=== PATIENT | male | born 1945 | race Caucasian/White ===

== ENCOUNTER 2016-09-17 04:03 | Inpatient (IN) | payer BC, OTHER ==
[2016-09-17] MEDS ORDERED: NS 1,000 ML IV ONE (04:48)
[2016-09-17 05:07] LABS: % IMMATURE GRANULYOCYTES 0.4 % (0.0-1.1); ABSOLUTE IMMATURE GRANULOCYTES 0.03 10^3/uL (0.00-0.10); ADD DIFF? NO; ADD MORPH? NO; ADD SCAN? NO; ATYPICAL LYMPHOCYTE FLAG 10 (0-99); FRAGMENT RBC FLAG 0 (0-99); HEMATOCRIT 30.2 % (40.0-51.0); HEMOGLOBIN 10.2 g/dL (13.7-17.5); LEFT SHIFT FLG 10 (0-99); LIPEMIA HEMOLYSIS FLAG 90 (0-99); MEAN CELL HEMOGLOBIN 33.1 pg (27.9-34.1); MEAN CELL HEMOGLOBIN CONCENTR. 33.8 g/dL (32.4-36.7); MEAN CELL VOLUME 98.1 fL (81.5-99.8); MEAN PLATELET VOLUME 9.1 fL (8.7-11.7); PLATELET CLUMPS FLAG 0 (0-99); PLATELET COUNT 297 10^3/uL (150-400); RED BLOOD CELL COUNT 3.08 10^6/uL (4.40-6.38); RED CELL DISTRIBUTION WIDTH 13.4 % (11.5-15.2)
[2016-09-17 05:16] LABS: ALANINE AMINOTRANSFERASE 36 IU/L (21-72); ALBUMIN 3.6 g/dL (3.5-5.0); ALKALINE PHOSPHATASE 81 IU/L (38-126); ANION GAP 9 mEq/L (8-16); ASPARTATE AMINOTRANSFERASE 36 IU/L (17-59); BILIRUBIN,TOTAL 0.7 mg/dL (0.1-1.4); BILIRUBIN-CONJUGATED 0.7 mg/dL (0.0-0.5); CALCIUM 8.7 mg/dL (8.5-10.4); CARBON DIOXIDE 22 mEq/l (22-31); CHLORIDE 113 mEq/L (97-110); CREATININE 1.1 mg/dL (0.7-1.3); ETHANOL SERUM < 10 mg/dL (0-10); GLOMERULAR FILTRATION RATE > 60; GLUCOSE 147 mg/dL (70-100); POTASSIUM 4.1 mEq/L (3.5-5.2); SODIUM 144 mEq/L (134-144); TOTAL PROTEIN 6.3 g/dL (6.3-8.2)
--- NOTE | 2016-09-17 05:25 | EDPHY ---
H & P Stated Complaint: AMS, found by spouse on floor next to bed, delusional, Hx of encephalopathy Time Seen by Provider: 09/17/16 04:28 HPI/ROS: HPI The patient presents with weakness and altered mental status, brought in by his and son. The patient has a recent history of encephalitis with aspiration pneumonia and multiple sclerosis, discharged from the hospital on July 26 to a rehab facility. He has been at home for the last 3 weeks. During the last 1 week he has gotten progressively more weak than usual. When he left the rehab facility, he could use a wheelchair and make transfers on his own. However, now over the last 3 days he has been bedbound and unable to make transfers with his wheelchair. His came home from work tonight find him on the ground. He said that there were several people in the house that were intruding and he said he went to the 3rd floor, however there house is not have a 3rd floor. His says that this would be impossible. His also says that he is having difficulty feeding himself and she had to feed him a sandwich before they came in today. He has had multiple falls out of his bed. He continues to take tramadol, however he is taking a lower dose than usual he says, 2 pills 3 times a day REVIEW OF SYSTEMS Constitutional: No fever, no chills. Eyes: No discharge. ENT: No sore throat. Cardiovascular: No chest pain, no palpitations. Respiratory: No cough, no shortness of breath. Gastrointestinal: No abdominal pain, no vomiting. Genitourinary: No hematuria. Musculoskeletal: Lower back pain is present Skin: No rashes. Neurological: No headache. PMHx: Multiple sclerosis, history of acute encephalopathy with aspiration pneumonia Soc Hx: Lives at home with his PHYSICAL General Appearance: Alert, no distress Eyes: Pupils equal and round no pallor or injection ENT, Mouth: Mucous membranes moist Respiratory: There are no retractions, lungs are clear to auscultation Cardiovascular: Regular rate and rhythm Gastrointestinal: Abdomen is soft and non-tender, no masses, bowel sounds normal Neurological: A&O, moves all extremities Skin: Warm and dry, no rashes Musculoskeletal: Neck is supple non tender Extremities: symmetrical, full range of motion Psychiatric: Patient is oriented X 3, there is no agitation, active hallucinations Source: Patient, Family - Personal History Tetanus Vaccine Date: W/IN LAST FEW YEARS - Medical/Surgical History Hx Asthma: No Hx Chronic Respiratory Disease: No Hx Diabetes: No Hx Cardiac Disease: Yes Hx Renal Disease: No Hx Cirrhosis: No Hx Alcoholism: No Hx HIV/AIDS: No Hx Splenectomy or Spleen Trauma: No Other PMH: MS, CHF, arthritis, umbilical hernia repair, bowel obstruction - Social History Smoking Status: Former smoker Constitutional: Initial Vital Signs Temperature (C) 36.8 C 09/17/16 04:15 Heart Rate 88 09/17/16 04:15 Respiratory Rate 16 09/17/16 04:15 Blood Pressure 147/67 H 09/17/16 04:15 O2 Sat (%) 96 09/17/16 04:15 O2 Delivery Mode Room Air Allergies/Adverse Reactions: No Known Allergies Allergy (Unverified 03/10/13 14:27) Home Medications: Medication Instructions Recorded Carvedilol [Coreg (*)] 6.25 mg PO DAILY 03/10/13 Glatiramer Acetate [Copaxone] 40 mg SQ MOWEFR 03/10/13 Lisinopril/Hctz 20/12.5MG 1 ea PO DAILY 03/10/13 [Zestoretic/Prinzide 20/12.5MG (*)] Methocarbamol [Robaxin 750 mg (*)] 1,500 mg PO QID 03/10/13 Omeprazole [Prilosec 40 mg] 40 mg PO DAILY 03/10/13 Potassium Cl [Klor-Con 20 meq (*)] 20 meq PO Q48H 03/10/13 Herbals/Supplements -Info Only 1 ea PO AD 02/19/15 traMADol [Ultram 50 mg (*)] 100 mg PO Q4H PRN 02/19/15 Amitriptyline HCl [Elavil 50 mg 50 mg PO HS 07/15/16 (*)] Gabapentin [Neurontin] 900 mg PO BID #0 tablet 07/26/16 Medical Decision Making - Diagnostics Imaging: CT scan of head shows findings of multiple sclerosis without any acute findings , discussed with Dr. Garcia. ED Course/Re-evaluation: 4:45 a.m.- Initial patient encounter. We have started an IV and will check basic labs, chest x-ray, CT scan of head. 7:00 a.m.- Labs and studies have returned relatively normal. He continues to be altered. I have discussed the case with the hospitalist Dr. Diez and we plan to admit him. Differential Diagnosis: This is a 71-year-old male with helped history of multiple sclerosis who presents from home brought in by his family with concern for hallucinations as well as progressive weakness. The weakness seems global and he has had several falls out of bed. He was admitted about 2 months ago for acute encephalopathy, similar to this and had an extensive workup which was remarkable for aspiration pneumonia. His encephalopathy was thought to be related to medication use, possibly gabapentin and tramadol. Differential diagnosis includes encephalopathy related to medication use, multiple sclerosis, underlying liver disease, infection. - Data Points Laboratory Results: Laboratory Results 09/17/16 04:55 09/17/16 04:55 Medications Given: Discontinued Medications Sodium Chloride (Ns) 1,000 mls @ 0 mls/hr IV ONCE ONE PRN Reason: Wide Open Stop: 09/17/16 04:49 Last Admin: 09/17/16 05:08 Dose: 1,000 mls Departure - Departure Disposition: [facility] Inpatient Acute Clinical Impression: Confusion, Weakness, Multiple sclerosis Condition: Fair
[2016-09-17] MEDS ORDERED: ONDANSETRON 4 MG/2 ML VIAL IVP PRN (06:35)
[2016-09-17] MEDS ORDERED: ACETAMINOPHEN 325 MG TAB PO PRN (06:35)
[2016-09-17] MEDS ORDERED: ONDANSETRON DISINTEGRATING 4 MG TAB PO PRN (06:35)
--- NOTE | 2016-09-17 06:48 | PDGENHP ---
History and Physical - Chief Complaint Altered mental status - History of Present Illness Patient is a 71-year-old male with multiple sclerosis, CHF, hypertension and GERD who presents to the ED with altered mental status and frequent falls. Patient had hospitalization at [facility] about 2 months ago for altered mental status which was ultimately deemed to be multifactorial in nature , was discharged to subacute rehab facility and had recently been discharged home about 3 weeks ago. Patient's states that for the past week she has noticed an increase in the frequency falls. Patient reports that falls have been mechanical in nature, mostly him sliding off the bed when trying to stand or reach for something. On the day of presentation today, patient is states she left for work earlier in the day and when she returned she found him on the floor near his bed. He was unable to stand and she is unsure how long he had been on the ground. Patient states he remembers falling, described as a mechanical fall due to lower extremity weakness, and he does remember hitting his head on the ground In addition to generalized weakness, patient was also answering questions inappropriately and appeared acutely confused. He was reporting seeing people in his home wearing masks who were not there. Patient' s was unable to lift him it back into his bed, so she called EMS. Patient and his deny any recent illnesses including fevers, chills, nausea, vomiting, diarrhea cough, shortness of breath or chest pain. He did have of a viral GI illness while in the subacute rehab facility, but this had resolved. During his prior admission, polypharmacy was thought to be contributing to his presentation. Attempts were made to decrease and tramadol dosing, however patient states he still continues to be this medication daily. No other medication changes since discharge were made. On arrival to the ED, patient was afebrile and hemodynamically stable. Labs were largely unremarkable, negative lactate, CBC and BMP at baseline. Chest x- ray did not reveal any evidence of pneumonia. CT head was unchanged from prior. Patient was given IV fluid hydration and admitted to the hospital service for further management. History Information - Allergies/Home Medication List Allergies/Adverse Reactions: No Known Allergies Allergy (Unverified 03/10/13 14:27) Home Medications: Carvedilol [Coreg (*)] 6.25 mg PO DAILY 03/10/13 [Last Taken 07/12/16] Glatiramer Acetate [Copaxone] 40 mg SQ MOWEFR 03/10/13 [Last Taken 07/13/16] Lisinopril/Hctz 20/12.5MG [Zestoretic/Prinzide 20/12.5MG (*)] 1 ea PO DAILY [Last Taken 07/12/16] Methocarbamol [Robaxin 750 mg (*)] 1,500 mg PO QID 03/10/13 [Last Taken 07/12/16 ] Omeprazole [Prilosec 40 mg] 40 mg PO DAILY 03/10/13 [Last Taken 07/12/16] Potassium Cl [Klor-Con 20 meq (*)] 20 meq PO Q48H 03/10/13 [Last Taken 07/10/16] Herbals/Supplements -Info Only 1 ea PO AD 02/19/15 [Last Taken Unknown] traMADol [Ultram 50 mg (*)] 100 mg PO Q4H PRN 02/19/15 [Last Taken 07/14/16] Amitriptyline HCl [Elavil 50 mg (*)] 50 mg PO HS 07/15/16 [Last Taken 07/12/16] I have personally reviewed and updated: family history, medical history, social history, surgical history - Past Medical History Additional medical history: Multiple sclerosis (diagnosed about 10 years ago, relapsing remitting type, no recent changes in medications). Chronic systolic CHF. Arthritis. Hypertension. GERD - Surgical History Additional surgical history: SBO repair. Umbilical hernia. b/l inguinal hernia - Family History Additional family history: M: ?throat cancer - Social History Smoking Status: Former smoker Alcohol Use: None Drug Use: None Additional social history: Pt lives with his , at his baseline is able to complete simple ADLs (bathroom activities, simple kitchen tasks); walks with walker. Retired, formerly worked in security. Review of Systems ROS: 10pt was reviewed & negative except for what was stated in HPI & below Physical Exam Temp Pulse Resp BP Pulse Ox 36.8 C 88 16 147/67 H 96 09/17/16 04:15 09/17/16 04:15 09/17/16 04:15 09/17/16 04:15 09/17/16 04:15 Constitutional: appears nourished, not in pain, chronically ill appearing Eyes: PERRL, anicteric sclera, EOMI Ears, Nose, Mouth, Throat: hearing normal, ears appear normal, no oral mucosal ulcers, dry mucous membranes Cardiovascular: regular rate and rhythym, no murmur, rub, or gallop, pulses symmetric bilaterally, No JVD, No edema Peripheral Pulses: 2+: dorsalis-pedis (R), dorsalis-pedis (L) Respiratory: no respiratory distress, no rales or rhonchi, clear to auscultation Gastrointestinal: normoactive bowel sounds, soft, non-tender abdomen, no palpable masses, No guarding, No rebound, No distension Genitourinary: no bladder fullness, no bladder tenderness Skin: warm, normal color, no rashes or abrasions, no fluctuance, No mottled Musculoskeletal: no muscle tenderness, no joint effusions Neurologic: AAOx3, sensation intact bilaterally, CN II-XII Intact, No weakness, No numbness Psychiatric: not anxious, not encephalopathic, thought process linear Lab Data & Imaging Review 09/17/16 04:55 09/17/16 04:55 WBC 7.94 10^3/uL (3.80-9.50) 09/17/16 04:55 RBC 3.08 10^6/uL (4.40-6.38) L 09/17/16 04:55 Hgb 10.2 g/dL (13.7-17.5) L 09/17/16 04:55 Hct 30.2 % (40.0-51.0) L 09/17/16 04:55 MCV 98.1 fL (81.5-99.8) 09/17/16 04:55 MCH 33.1 pg (27.9-34.1) 09/17/16 04:55 MCHC 33.8 g/dL (32.4-36.7) 09/17/16 04:55 RDW 13.4 % (11.5-15.2) 09/17/16 04:55 Plt Count 297 10^3/uL (150-400) 09/17/16 04:55 MPV 9.1 fL (8.7-11.7) 09/17/16 04:55 Neut % (Auto) 79.2 % (39.3-74.2) H 09/17/16 04:55 Lymph % (Auto) 12.6 % (15.0-45.0) L 09/17/16 04:55 [place] % (Auto) 7.3 % (4.5-13.0) 09/17/16 04:55 Eos % (Auto) 0.1 % (0.6-7.6) L 09/17/16 04:55 Baso % (Auto) 0.4 % (0.3-1.7) 09/17/16 04:55 Nucleat RBC Rel Count 0.0 % (0.0-0.2) 09/17/16 04:55 Absolute Neuts (auto) 6.29 10^3/uL (1.70-6.50) 09/17/16 04:55 Absolute Lymphs (auto) 1.00 10^3/uL (1.00-3.00) 09/17/16 04:55 Absolute Monos (auto) 0.58 10^3/uL (0.30-0.80) 09/17/16 04:55 Absolute Eos (auto) 0.01 10^3/uL (0.03-0.40) L 09/17/16 04:55 Absolute Basos (auto) 0.03 10^3/uL (0.02-0.10) 09/17/16 04:55 Absolute Nucleated RBC 0.00 10^3/uL (0-0.01) 09/17/16 04:55 Immature Gran % 0.4 % (0.0-1.1) 09/17/16 04:55 Immature Gran # 0.03 10^3/uL (0.00-0.10) 09/17/16 04:55 Sodium 144 mEq/L (134-144) 09/17/16 04:55 Potassium 4.1 mEq/L (3.5-5.2) 09/17/16 04:55 Chloride 113 mEq/L (97-110) H 09/17/16 04:55 Carbon Dioxide 22 mEq/l (22-31) 09/17/16 04:55 Anion Gap 9 mEq/L (8-16) 09/17/16 04:55 BUN 26 mg/dL (7-23) H 09/17/16 04:55 Creatinine 1.1 mg/dL (0.7-1.3) 09/17/16 04:55 Estimated GFR > 60 09/17/16 04:55 Glucose 147 mg/dL (70-100) H 09/17/16 04:55 Calcium 8.7 mg/dL (8.5-10.4) 09/17/16 04:55 Total Bilirubin 0.7 mg/dL (0.1-1.4) 09/17/16 04:55 Conjugated Bilirubin 0.7 mg/dL (0.0-0.5) H 09/17/16 04:55 Unconjugated Bilirubin 0.0 mg/dL (0.0-1.1) 09/17/16 04:55 AST 36 IU/L (17-59) 09/17/16 04:55 ALT 36 IU/L (21-72) 09/17/16 04:55 Alkaline Phosphatase 81 IU/L (38-126) 09/17/16 04:55 Total Protein 6.3 g/dL (6.3-8.2) 09/17/16 04:55 Albumin 3.6 g/dL (3.5-5.0) 09/17/16 04:55 Ethyl Alcohol < 10 mg/dL (0-10) 09/17/16 04:55 Visualized and Interpreted Chest x-ray results: Yes Chest X-Ray results: no infiltrate, normal Visualized and Interpreted imaging results: Yes Interpretation: CT head: Chronic MS changes, no acute findings Assessment & Plan Assessment: Patient is a 71-year-old male with a history of advanced MS, hypertension GERD and osteoarthritis who presents to the ED with an acute episode of altered mental status, etiology unclear. Plan: # acute encephalopathy Etiology of encephalopathy is again unclear, differential includes polypharmacy , acute infection (UA pending), intoxication, CVA. Exam does not appear consistent with an acute MS flare and no evidence of focal deficits. Will hold tramadol, cont gentle IVF hydration and obtain neurology consult. - check ammonia, CO2 levels, pH - gentle IVF hydration - neurology consult # falls # chronic systolic CHF Pt appears hypovolemic on exam and labs are consistent with dehydration. Will give gentle hydration and monitor to avoid over hydration. WIll also check EKG and trop to r/o a cardiac etiology of his encephalopathy. # chronic MS Pt's current presentation does not appear consistent with an MS flare. Will confirm and cont home meds. # chronic HTN BP stable, will continue home meds. # GERD Stable, cont home med # osteoarthritis Pt denies any acute pain. Will try to avoid opioid pain med in setting of acute encephalopathy # dispo: admit to inpt service for > 2 MN # gen: Cardiac diet DVT ppx: lovenox Full code
[2016-09-17] MEDS ORDERED: OXYCODONE/APAP 5/325 TAB ONE (08:31)
--- NOTE | 2016-09-17 09:03 | DX ---
PA and Lateral Chest September 17, 2016, 5:02 a.m. Indication: Altered mental status. Evaluate for pneumonia. Comparison: Portable chest dated July 17, 2016. Findings: Left basilar airspace consolidation has resolved. Diffuse mild peribronchial thickening is unchanged. No new confluent consolidation or edema. Minimal cardiomegaly unchanged. Impression: 1. No pneumonia, aspiration or interstitial edema. 2. Resolved left basilar consolidation since June 2016.
[2016-09-17] MEDS: NS 1,000 ML IV SCH (12:05)
[2016-09-17] MEDS: ENOXAPARIN 40 MG/0.4 ML SYR SC SCH (12:06)
[2016-09-17] MEDS: OXYCODONE/APAP 5/325 TAB PO PRN ×2 (12:48→17:07)
--- NOTE | 2016-09-17 15:50 | HOSPPROG ---
Hospitalist Progress Note Assessment/Plan: 71 yo M with hx of MS that is fairly advanced as well as chf and recent hospitalization for aspiration pna admitted with acute encephalopathy # acute encephalopathy: has been improving rapidly overnight without intervention other than IVF. Question if this could be medication related, such as inadvertent overdose, patient feels strongly this isn't possible, though does acknowledge that he manages his own medications and uses a system that his doesn't understand so that if he did take wrong or extra pills, he wouldn' t really know that. No clear e/o infection though UA still pending. Does not have any focal neuro deficits on exam and head CT unremarkable. Will monitor for now, check UA, consider further w/u if recurs. If not, will work on med administration safety at home # MS: relapsing and remitting, on copaxone, has difficulties with ADLs and has been falling more frequently. Is still living at home with his who is working during the day still. May need higher level of care in the near future. # chronic diastolic heart failure: no e/o exacerbation, appears euvolemic # chronic medical issues including : htn, gerd, OA--continue op meds # dispo: will monitor overnight, if no further issues may be able to dc home at that time with home health Patient new to my care. Old records reviewed and summarized as above. Further hx obtained from patients present at bedside. Objective: Vital Signs Temp Pulse Resp BP Pulse Ox 36.9 C 75 18 146/56 H 95 09/17/16 11:52 09/17/16 11:52 09/17/16 11:52 09/17/16 11:52 09/17/16 11:52 - Time Spent With Patient Time Spent with Patient: greater than 35 minutes Time Spent with Patient: Greater than 35 minutes spent on this patients care, greater than 50% of time spent counseling, educating, and coordinating care regarding the above mentioned plan. ICD10 Worksheet Patient Problems: Problems Problem Status Diagnosed Confusion Acute Multiple sclerosis Acute Weakness Acute Diarrhea Acute Nausea & vomiting Acute Vomiting Acute
--- NOTE | 2016-09-17 16:17 | CT ---
CT Head, Without Contrast History: Altered mental status. History of MS. Hallucinations. Technique: Standard noncontrast head CT protocol utilizing axial images acquired through the [facility] um. Images were reconstructed down to 1.25-mm slice thickness as well. Radiation dose technique was u tilized. Comparison: July 15, 2016. Findings: Periventricular and deep hemispheric white matter lesions are seen bilaterally with a stabl e appearance. Some of these white matter lesions are very low attenuation perpendicular to the latera l ventricles that can be seen with multiple sclerosis. No evidence for acute infarct, intracranial he morrhage, or mass. The ventricles, sulci, and cisterns are within normal limits for the patient's age . No evidence for an extraaxial fluid collection. No evidence for skull fracture. No evidence for an air-fluid level in the paranasal sinuses. Impression: Stable periventricular and deep hemispheric white matter lesions that can be seen with de myelinating disease such as multiple sclerosis as given by history. No acute intracranial abnormality is visualized. Results discussed with Dr. Kalee Albert at 0554 hours on 17 September 2016. Final interpretation concurs with initial preliminary radiologist impression.
[2016-09-17] MEDS: POTASSIUM CL 20 MEQ TAB PO SCH (16:50)
[2016-09-17] MEDS: METHOCARBAMOL 750 MG TAB PO SCH ×2 (16:50→20:32)
[2016-09-17 18:32] LABS: PCO2 VENOUS 30 mmHg (40-44); PH VENOUS BLOOD 7.43 (7.31-7.42); PO2 VENOUS 169 mmHg (35-40); TCO2 VENOUS 21 mEq/L (23-27); VEN MEASURED OXYGEN SATURATION 100 % (65-75)
[2016-09-17] MEDS: AMITRIPTYLINE HCL 50 MG TAB PO SCH (20:32)
[2016-09-17] MEDS: GABAPENTIN 300 MG CAP PO SCH (20:32)
[2016-09-17] MEDS: traMADol 50 MG TAB PO PRN (20:33)
[2016-09-17] MEDS ORDERED: GABAPENTIN 900 MG PO SCH (21:00)
[2016-09-17 22:23] LABS: COLOR YELLOW; LEUKOCYTE ESTERASE,URINE NEGATIVE (NEGATIVE); NITRITE,URINE NEGATIVE (NEGATIVE)
[2016-09-18] MEDS: OXYCODONE/APAP 5/325 TAB PO PRN ×3 (00:33→18:32)
[2016-09-18] MEDS: traMADol 50 MG TAB PO PRN ×3 (04:25→18:31)
[2016-09-18 05:52] LABS: % IMMATURE GRANULYOCYTES 0.2 % (0.0-1.1); ABSOLUTE IMMATURE GRANULOCYTES 0.01 10^3/uL (0.00-0.10); ADD DIFF? NO; ADD MORPH? NO; ADD SCAN? NO; ATYPICAL LYMPHOCYTE FLAG 0 (0-99); FRAGMENT RBC FLAG 0 (0-99); HEMATOCRIT 29.8 % (40.0-51.0); LEFT SHIFT FLG 0 (0-99); LIPEMIA HEMOLYSIS FLAG 80 (0-99); MEAN CELL HEMOGLOBIN 33.8 pg (27.9-34.1); MEAN CELL HEMOGLOBIN CONCENTR. 33.6 g/dL (32.4-36.7); MEAN CELL VOLUME 100.7 fL (81.5-99.8); MEAN PLATELET VOLUME 9.5 fL (8.7-11.7); PLATELET CLUMPS FLAG 0 (0-99); PLATELET COUNT 241 10^3/uL (150-400); RED BLOOD CELL COUNT 2.96 10^6/uL (4.40-6.38); RED CELL DISTRIBUTION WIDTH 13.3 % (11.5-15.2)
[2016-09-18] MEDS: METHOCARBAMOL 750 MG TAB PO SCH ×4 (05:59→20:32)
[2016-09-18 06:07] LABS: ANION GAP 4 mEq/L (8-16); CALCIUM 8.1 mg/dL (8.5-10.4); CARBON DIOXIDE 21 mEq/l (22-31); CHLORIDE 116 mEq/L (97-110); CREATININE 0.9 mg/dL (0.7-1.3); GLOMERULAR FILTRATION RATE > 60; GLUCOSE 79 mg/dL (70-100); POTASSIUM 4.3 mEq/L (3.5-5.2); SODIUM 141 mEq/L (134-144)
[2016-09-18] MEDS: GABAPENTIN 300 MG CAP PO SCH ×2 (08:30→20:32)
[2016-09-18] MEDS: ENOXAPARIN 40 MG/0.4 ML SYR SC SCH (08:30)
[2016-09-18] MEDS: PANTOPRAZOLE SODIUM 40 MG TAB PO SCH (08:30)
[2016-09-18] MEDS: CARVEDILOL 3.125 MG TAB PO SCH (08:33)
[2016-09-18] MEDS: LISINOPRIL/HCTZ 20/12.5MG 1 EA TAB PO SCH (08:33)
[2016-09-18] MEDS ORDERED: NON-FORMULARY NEW DRUG (Omeprazole [Prilosec 40 Mg] 40 MG) PO SCH (09:00)
[2016-09-18] MEDS: NS 1,000 ML IV SCH (13:56)
--- NOTE | 2016-09-18 16:02 | HOSPPROG ---
Hospitalist Progress Note Assessment/Plan: 71 yo M with hx of MS that is fairly advanced as well as chf and recent hospitalization for aspiration pna admitted with acute encephalopathy # acute encephalopathy: essentially resolved w/o intervention. Unclear if this could be med side effect or related to MJ use. Has not recurred and now back on usual home meds. Continue to monitor. # MS: relapsing and remitting, on copaxone, has difficulties with ADLs and has been falling more frequently. Is still living at home with his who is working during the day still. May need higher level of care in the near future. # gait instability/generalized weakness: patient quite debilitated 2/2 MS, has issues with ADLs including eating/toileting and transferring. Is alone all night long as works nights [place] At this time does not appear safe to dc home. PT/OT involved and will work with them and CM to determine if patient best for SNF after dc. He agrees this might be appropriate even if it isn't what he would want ideally. # chronic diastolic heart failure: no e/o exacerbation, appears euvolemic # chronic medical issues including : htn, gerd, OA--continue op meds # dispo: IP stay, given high fall risk and inability to perform ADLs he is not safe for dc home without 24 hour supervision Subjective: no significant overnight events, patient thinking clearly and has not had any confusion or hallucinations but is still weak and having difficulty ambulating Objective: Vital Signs Temp Pulse Resp BP Pulse Ox 36.4 C 67 15 128/53 H 93 09/18/16 15:35 09/18/16 15:35 09/18/16 15:35 09/18/16 15:35 09/18/16 15:35 Laboratory Results 09/18/16 04:25 09/18/16 04:25 09/17/16 09/18/16 09/19/16 05:59 05:59 05:59 Intake Total 200 Output Total 600 550 Balance -400 -550 awake alert chronically ill appearing anicteric op clear rrr no mrg cta b soft nt nd no cce warm dry well perfused oriented appropriate ICD10 Worksheet Patient Problems: Problems Problem Status Diagnosed Confusion Acute Multiple sclerosis Acute Weakness Acute Diarrhea Acute Nausea & vomiting Acute Vomiting Acute
[2016-09-18] MEDS: AMITRIPTYLINE HCL 50 MG TAB PO SCH (20:32)
[2016-09-19] MEDS: NS 1,000 ML IV SCH (02:03)
[2016-09-19] MEDS: OXYCODONE/APAP 5/325 TAB PO PRN ×2 (02:03→23:39)
[2016-09-19] MEDS: METHOCARBAMOL 750 MG TAB PO SCH ×4 (05:08→20:47)
[2016-09-19] MEDS: traMADol 50 MG TAB PO PRN ×4 (05:10→18:52)
[2016-09-19] MEDS: LISINOPRIL/HCTZ 20/12.5MG 1 EA TAB PO SCH (08:16)
[2016-09-19] MEDS: ENOXAPARIN 40 MG/0.4 ML SYR SC SCH (08:16)
[2016-09-19] MEDS: PANTOPRAZOLE SODIUM 40 MG TAB PO SCH (08:17)
[2016-09-19] MEDS: CARVEDILOL 3.125 MG TAB PO SCH (08:17)
[2016-09-19] MEDS: GABAPENTIN 300 MG CAP PO SCH ×2 (08:19→20:46)
--- NOTE | 2016-09-19 11:35 | HOSPPROG ---
[id number] for aspiration pna admitted with acute encephalopathy. Today is my 1st encounter with the patient. Chart reviewed. # acute encephalopathy: * Resolved without any intervention * possibly secondary to cannabis use # MS: relapsing and remitting, on copaxone, * therapies are recommending a half-way facility * patient only wants to go home * home care likely not available/lives [facility] * Patient has seen Dr. Mccurdy in the past. Has not been following up with Neurology but has his primary care provider manage his care. #. anemia * will follow # gait instability/generalized weakness: * patient quite debilitated 2/2 MS, has issues with ADLs including eating/ toileting and transferring. Is alone all night long as works nights and [place] At this time does not appear safe to dc home. PT/OT involved and will work with them and CM to determine if patient best for SNF after dc. # chronic diastolic heart failure: no e/o exacerbation, appears euvolemic * dc fluids # chronic medical issues including : htn, gerd, OA--continue op meds # dispo: IP stay, given high fall risk and inability to perform ADLs he is not safe for dc home without 24 hour supervision/ will talk with case management about discussing with the patient and his a half-way facility. He has had a bad experience at a half-way facility where he received multiple bruises and bumps. Subjective: Hugo continues to feel very weak with but his encephalopathy has cleared according to him. Objective: Vital Signs Temp Pulse Resp BP Pulse Ox 36.6 C 66 17 163/62 H 92 09/19/16 07:30 09/19/16 08:17 09/19/16 07:30 09/19/16 08:17 09/19/16 07:30 Laboratory Results 09/18/16 04:25 09/18/16 04:25 09/18/16 09/19/16 09/20/16 05:59 05:59 05:59 Intake Total 200 1800 Output Total 600 2120 Balance -400 -320 - Physical Exam Constitutional: chronically ill appearing, other ( very thin), No not in pain Eyes: PERRL Ears, Nose, Mouth, Throat: hearing normal Cardiovascular: regular rate and rhythym Respiratory: no respiratory distress Gastrointestinal: normoactive bowel sounds Skin: other ( multiple scabs on his lower extremities with scratches. Do not appear infected) Musculoskeletal: generalized weakness Neurologic: AAOx3 Psychiatric: interacting appropriately, not anxious ICD10 Worksheet Patient Problems: Problems Problem Status Diagnosed Confusion Acute Multiple sclerosis Acute Weakness Acute Diarrhea Acute Nausea & vomiting Acute Vomiting Acute
[2016-09-19] MEDS ORDERED: Glatiramer Acetate [Copaxone] 40 MG SQ SCH (15:45)
[2016-09-19] MEDS: Glatiramer Acetate [Copaxone] 40 MG SQ SCH (16:27)
[2016-09-19] MEDS: POTASSIUM CL 20 MEQ TAB PO SCH (16:27)
[2016-09-19] MEDS: AMITRIPTYLINE HCL 50 MG TAB PO SCH (20:47)
[2016-09-20] MEDS: METHOCARBAMOL 750 MG TAB PO SCH ×4 (05:40→20:18)
--- NOTE | 2016-09-20 12:46 | HOSPPROG ---
Hospitalist Progress Note Assessment/Plan: 71 yo M with hx of MS that is fairly advanced as well as chf and recent hospitalization for aspiration pna admitted with acute encephalopathy. # acute encephalopathy: * Resolved without any intervention * possibly secondary to cannabis use # MS: relapsing and remitting, on copaxone, * will see if there are other treatment options/Dr Marsh to see * home care likely not available/lives past [facility]/ evaluating if this is available * Patient has seen Dr. Mccurdy in the past. Has not been following up with Neurology but has his primary care provider manage his care. #. anemia * will follow # gait instability/generalized weakness: * patient quite debilitated 2/2 MS, has issues with ADLs including eating/ toileting and transferring. Is alone all night long as works nights [place] At this time does not appear safe to dc home. * patient doesn't want to go to SNF, feels his family doesn't want to deal with him and doesn't know what next steps are # chronic diastolic heart failure: no e/o exacerbation, appears euvolemic * dc fluids # chronic medical issues including : htn, gerd, OA--continue op meds # dispo: pending/ he is very sad about needing depends last night/says he isn' t sure all of this is worth it/ will ask Palliative care team to see and Dr Marsh to see (this will help determine how advance his MS is) Subjective: Hugo is very sad/ humiliated that he needed to wear a 'diaper' last night. Objective: Vital Signs Temp Pulse Resp BP Pulse Ox 36.3 C 76 16 160/100 H 98 09/20/16 08:00 09/20/16 08:00 09/20/16 08:00 09/20/16 08:00 09/20/16 08:00 Microbiology 09/17/16 22:05 Urine Culture - Final Urine,Clean Catch Five Or More [place] Types Laboratory Results 09/18/16 04:25 09/18/16 04:25 09/19/16 09/20/16 09/21/16 05:59 05:59 05:59 Intake Total 1800 350 Output Total 2120 100 Balance -320 250 - Physical Exam Constitutional: chronically ill appearing, cachectic Eyes: PERRL Ears, Nose, Mouth, Throat: hearing normal Cardiovascular: regular rate and rhythym Respiratory: no respiratory distress Gastrointestinal: normoactive bowel sounds Skin: warm, other (multiple lower ext scratches) Musculoskeletal: generalized weakness Neurologic: AAOx3 Psychiatric: depressed, flat affect, No suicidal ideation ICD10 Worksheet Patient Problems: Problems Problem Status Diagnosed Confusion Acute Multiple sclerosis Acute Weakness Acute Diarrhea Acute Nausea & vomiting Acute Vomiting Acute
[2016-09-20] MEDS: GABAPENTIN 300 MG CAP PO SCH ×2 (13:12→20:18)
[2016-09-20] MEDS: traMADol 50 MG TAB PO PRN ×2 (13:15→20:21)
[2016-09-20] MEDS: LISINOPRIL/HCTZ 20/12.5MG 1 EA TAB PO SCH (13:16)
[2016-09-20] MEDS: CARVEDILOL 3.125 MG TAB PO SCH (13:17)
[2016-09-20] MEDS: PANTOPRAZOLE SODIUM 40 MG TAB PO SCH (13:17)
[2016-09-20] MEDS: ENOXAPARIN 40 MG/0.4 ML SYR SC SCH (13:18)
[2016-09-20] MEDS ORDERED: LORazepam 1 MG TAB PO ONE (15:49)
[2016-09-20] MEDS ORDERED: LORazepam 1 MG TAB ONE (18:32)
[2016-09-20] MEDS ORDERED: GADOBUTROL 10 ML VIAL IVP ONE (19:19)
--- NOTE | 2016-09-20 19:26 | GCON ---
[f rep st] CONSULTATION INPATIENT CONSULTATION NOTE DATE OF CONSULTATION: 09/20/2016 REFERRING PHYSICIAN: Karyn Hayden NP CHIEF COMPLAINT: Advanced multiple sclerosis. HISTORY OF PRESENT ILLNESS: Dr. Karyn Hayden of the hospitalist service consulted Neurology for evaluation of the patient's multiple sclerosis. Results of the evaluation are placed in the EMR for review. This is a 71-year-old male, whom I have previously seen in the outpatient setting for relapsing, remitting multiple sclerosis. He reports a long course of relapsing, remitting multiple sclerosis, with Copaxone. Unfortunately, he has suffered slowly worsening neurologic problems including ataxia in all extremities, particularly significant in his legs, as well as some left-sided weakness and some bowel incontinence. His leg discoordination is so severe that he has problems ambulating and requires his to help with home healthcare. He has had frequent falls. He was seen a few months ago for episode of altered mental status, possibly thought to be due from frequent tramadol use in combination with his underlying multiple sclerosis. That resolved, but he was put in acute rehab, which he did well at [facility] for a few weeks. Approximately 3 weeks ago, he was released from acute rehab and went home. His had difficulty caring from him. In the last week, she reports his gait has significantly worsened where he will not get up anymore without help. His legs are atrophied from disuse. He has frequent falls per his . This prompted her to bring him back to the hospital for care. Patient states his legs feel worse in the last week, but otherwise cannot think of any worsening neurologic problems. He was a bit confused when he first came in. That has resolved and he is back to his normal mentation. ALLERGIES: No known drug allergies. MEDICATIONS ON ADMISSION: Coreg, Copaxone, lisinopril, hydrochlorothiazide, methocarbamol, omeprazole, potassium, tramadol, amitriptyline. PAST MEDICAL HISTORY: Relapsing, remitting multiple sclerosis, chronic systolic congestive heart failure, arthritis, hypertension, GERD, SBO repair, umbilical hernia, bilateral inguinal hernias. FAMILY HISTORY: Possible throat cancer. SOCIAL HISTORY: Former smoker. REVIEW OF SYSTEMS: A 10-point review of systems is negative, except what is placed in the HPI. PHYSICAL EXAM: VITAL SIGNS: Blood pressure is 160/100, heart rate 76, respirations 16, satting 98% on room air, temperature 36.3 degrees Celsius. GENERAL: No acute distress. EYES: Funduscopic exam could not visualize his optic discs. LUNGS: Clear to auscultation bilaterally. No rhonchi or rales. HEART: Regular rate and rhythm. No murmurs. No carotid bruits auscultated. EXTREMITIES: Legs are atrophied and skinny. NEUROLOGIC: Mental status: Alert and oriented to person, place, and date. Memory, attention, language, and fund of knowledge all appear intact. Cranial nerves: Pupils equally round and reactive to light. Visual wilde full to confrontation. Extraocular muscles intact. Bilateral face intact sensation and motor movement. Hearing intact to conversation. Uvula raises symmetrically. Tongue protrudes in midline. Traps 5/5 strength. Motor: Possibly very slightly increased tone in arms and legs. He has atrophy of both legs. Arms and legs are grossly intact to strength with the left arm slightly weaker than the right arm, but not to a significant degree. Sensory: All 4 extremities intact to light touch. Reflexes: Bilateral biceps, brachioradialis, and patellas are 2+ out of 4, appearing slightly hyperactive. Coordination: Bilateral arms and legs, has significant coordination difficulties. He has significant ataxia in both legs complicating movement. Both arms also have significant ataxia, although not to the degree of the legs. Gait deferred. LABS: September 17, 2016: CBC with hematocrit of 30.2. CMP with a chloride of 113, BUN 26, glucose 147, ammonia less than 9. TSH is normal. UA unremarkable. IMAGING: September 17, 2016: A head CT without contrast shows stable periventricular and deep hemispheric white matter lesions that can be seen with demyelinating diseases, such as multiple sclerosis as given by history. No acute intracranial abnormalities visualized. I personally visualized this study. ASSESSMENT: 1. Relapsing, remitting multiple sclerosis causing significant ataxia in arms and legs, impairing gait and abilities for activities of daily living. 2. Altered mental status, resolved. 3. Chronic systolic congestive heart failure. RECOMMENDATIONS: 1. Obtain brain and total spine MRI with and without contrast to look for any active demyelinating disease requiring IV steroids. 2. If no active lesions are seen, we will plan to have the patient follow up in the outpatient neurology clinic. We may consider changing Copaxone or considering treatment for possibly secondary progressive multiple sclerosis. 3. PT, OT and Speech working with patient, patient may not be able to care for himself and may need placement if we cannot improve his condition. At this point, I think it is unlikely that we will be able to significantly improve his neurologic condition, but we will have further information after the MRI. Neurology service will continue to follow closely. /[id number]/MODL MTDD
[2016-09-20] MEDS: AMITRIPTYLINE HCL 50 MG TAB PO SCH (20:18)
--- NOTE | 2016-09-20 20:43 | MR ---
MRI of the Brain (Without and With Contrast) at 1913 hours Indication: Multiple sclerosis. Altered mental status. Technique: T1-weighted images were acquired axially and sagittally from the foramen magnum to the ve rtex. Axial fast inversion-recovery, fast T2-weighted, susceptibility, and diffusion-weighted axial images were obtained, without contrast. Postcontrast axial and coronal images, with the uneventful i ntravenous administration of 5.5 mL Gadavist contrast. COMMENT: MRI of the cervical, thoracic, and lumbar spine was ordered; however, the patient declined proceeding with imaging of the spine. Comparison: MRI of the brain dated July 16, 2016. Findings: Extensive hyperintense white matter disease throughout the subcortical and periventricular distribution of the frontal, parietal, and occipital lobes as well as involvement of the corpus call osum is unchanged in volume and distribution since June 2016. No active demyelinating plaque on the postcontrast imaging. Several small CSF intensity cystic foci along the right lateral ventricle are unchanged. No new white matter lesions. No white matter lesions within the cerebellum or basal ganglia. Diffusion-weighted imaging is normal. No evidence of acute ischemia. No intracranial hemorrhage, esquivel bdural hematoma, or mass has developed. The ventricular system is midline. Mild diffuse cerebral at rophy is unchanged. No abnormal dural or leptomeningeal enhancement. The pituitary gland, cervicooccipital junction, orbits, and paranasal sinuses are unremarkable. The intracranial venous system normally enhances. The carotid and basivertebral arteries have normal hyp ointense flow voids on the T2-weighted sequence. Impression: 1. No acute intracranial hemorrhage or ischemia. 2. Moderate diffuse white matter disease throughout the frontal, parietal, and occipital lobes, cons istent with the diagnosis of multiple sclerosis, is unchanged in volume and distribution since 2015. No evidence of active demyelinating lesion.
[2016-09-21] MEDS: traMADol 50 MG TAB PO PRN ×5 (00:47→23:38)
[2016-09-21] MEDS: METHOCARBAMOL 750 MG TAB PO SCH ×4 (05:23→20:36)
[2016-09-21] MEDS: GABAPENTIN 300 MG CAP PO SCH ×2 (10:37→20:36)
[2016-09-21] MEDS: PANTOPRAZOLE SODIUM 40 MG TAB PO SCH (10:37)
[2016-09-21] MEDS: CARVEDILOL 3.125 MG TAB PO SCH (10:40)
[2016-09-21] MEDS: LISINOPRIL/HCTZ 20/12.5MG 1 EA TAB PO SCH (10:41)
[2016-09-21] MEDS: ENOXAPARIN 40 MG/0.4 ML SYR SC SCH (10:43)
--- NOTE | 2016-09-21 11:07 | PDIAF ---
- Diagnosis Diagnosis: Weakness Code Status: Full Code - Medication Management Discharge Medications: Medications to Continue on Transfer Carvedilol [Coreg (*)] 6.25 mg PO DAILY 03/10/13 [Last Taken 09/16/16] Glatiramer Acetate [Copaxone] 40 mg SQ MOWEFR 03/10/13 [Last Taken 09/14/16] Lisinopril/Hctz 20/12.5MG [Zestoretic/Prinzide 20/12.5MG (*)] 1 ea PO DAILY [Last Taken 09/15/16] Methocarbamol [Robaxin 750 mg (*)] 1,500 mg PO QID 03/10/13 [Last Taken 01:30] Omeprazole [Prilosec 40 mg] 40 mg PO DAILY 03/10/13 [Last Taken 09/10/16] Potassium Cl [Klor-Con 20 meq (*)] 20 meq PO Q48H 03/10/13 [Last Taken 09/15/16] Herbals/Supplements -Info Only 1 ea PO AD 02/19/15 [Last Taken Unknown] traMADol [Ultram 50 mg (*)] 100 mg PO Q4H PRN 02/19/15 [Last Taken 09/17/16 01: 30 50MG] Amitriptyline HCl [Elavil 50 mg (*)] 50 mg PO HS 07/15/16 [Last Taken 09/15/16] Gabapentin [Neurontin] 900 mg PO BID #0 tablet 07/26/16 [Last Taken 09/17/16 01: 30] Discharge Medications: Refer to the Discharge Home Medication list for PRN reason. - Orders Services needed: Home Care, Registered Nurse, Master Open Pit Quarry Supervisor, Physical Therapy, Occupational Therapy Home Care Face to Face: I certify that this patient was under my care and that I had the required [id number] encounter meeting the encounter requirements on the discharge day. My findings support the fact that the patient is homebound as defined in CMS Chapter 7 Medicare Benefits Manual 30.1.1, The condition of the patient is such that there exists a normal inability to leave home and consequently, leaving home would require a considerable and taxing effort. - Follow Up Care Current Providers and Referrals: Hugo Becker MD [Primary Care Provider] - As per Instructions
--- NOTE | 2016-09-21 14:38 | PDIAF ---
- Diagnosis Diagnosis: Weakness Code Status: Full Code - Medication Management Discharge Medications: Medications to Continue on Transfer Carvedilol [Coreg (*)] 6.25 mg PO DAILY 03/10/13 [Last Taken 09/16/16] Glatiramer Acetate [Copaxone] 40 mg SQ MOWEFR 03/10/13 [Last Taken 09/14/16] Lisinopril/Hctz 20/12.5MG [Zestoretic/Prinzide 20/12.5MG (*)] 1 ea PO DAILY [Last Taken 09/15/16] Methocarbamol [Robaxin 750 mg (*)] 1,500 mg PO QID 03/10/13 [Last Taken 01:30] Omeprazole [Prilosec 40 mg] 40 mg PO DAILY 03/10/13 [Last Taken 09/10/16] Potassium Cl [Klor-Con 20 meq (*)] 20 meq PO Q48H 03/10/13 [Last Taken 09/15/16] Herbals/Supplements -Info Only 1 ea PO AD 02/19/15 [Last Taken Unknown] traMADol [Ultram 50 mg (*)] 100 mg PO Q4H PRN 02/19/15 [Last Taken 09/17/16 01: 30 50MG] Amitriptyline HCl [Elavil 50 mg (*)] 50 mg PO HS 07/15/16 [Last Taken 09/15/16] Gabapentin [Neurontin] 900 mg PO BID #0 tablet 07/26/16 [Last Taken 09/17/16 01: 30] Discharge Medications: Refer to the Discharge Home Medication list for PRN reason. PICC Care - Routine: N/A - Orders Services needed: Home Care, Registered Nurse, Master Secondary School Teacher Librarian, Physical Therapy, Occupational Therapy Home Care Face to Face: I certify that this patient was under my care and that I had the required [id number] encounter meeting the encounter requirements on the discharge day. My findings support the fact that the patient is homebound as defined in CMS Chapter 7 Medicare Benefits Manual 30.1.1, The condition of the patient is such that there exists a normal inability to leave home and consequently, leaving home would require a considerable and taxing effort. - Follow Up Care Current Providers and Referrals: Hugo Becker MD [Primary Care Provider] - As per Instructions
--- NOTE | 2016-09-21 15:33 | HOSPPROG ---
Hospitalist Progress Note Assessment/Plan: 71 yo M with hx of MS that is fairly advanced as well as chf and recent hospitalization for aspiration pna admitted with acute encephalopathy. This is my first encounter with this patient, chart reviewed. D/W Dr Marsh. # acute encephalopathy: * Resolved without any intervention * possibly secondary to cannabis use # MS: relapsing and remitting, on copaxone, * MRI brain stable without acute flare * Dr Marsh to see outpt * Home care ordered/lives past [facility] * Has not been following up with Neurology but has his primary care provider manage his care. #. anemia * will follow # gait instability/generalized weakness: * patient quite debilitated 2/2 MS, and choice to remain minimally mobile. has issues with ADLs including eating/toileting and transferring. Is alone all night long as works nights [place]. At this time does not appear safe to dc home. * offered SNF but patient refusing * patient doesn't want to go to SNF, feels his family doesn't want to deal with him and doesn't know what next steps are * palliative care consult tomorrow # chronic diastolic heart failure: no e/o exacerbation, appears euvolemic * dc fluids # chronic medical issues including : htn, gerd, OA--continue op meds # dispo: pending/ Pt was DC but unable to come get him as she is at work/ says he isn't sure all of this is worth it/ will ask Palliative care team to see Palliative care tomrrow SNF offered Will DC tomorrow Subjective: Wont go to SNF. Pain controlled currently. Objective: Vital Signs Temp Pulse Resp BP Pulse Ox 36.7 C 69 16 128/59 H 98 09/21/16 08:00 09/21/16 10:40 09/21/16 08:00 09/21/16 10:41 09/21/16 08:00 Microbiology 09/17/16 22:05 Urine Culture - Final Urine,Clean Catch Five Or More [place] Types Laboratory Results 09/18/16 04:25 09/18/16 04:25 09/20/16 09/21/16 09/22/16 05:59 05:59 05:59 Intake Total 350 100 300 Output Total 100 100 Balance 250 100 200 - Physical Exam Constitutional: chronically ill appearing, unkempt, cachectic Eyes: PERRL, anicteric sclera, EOMI Ears, Nose, Mouth, Throat: moist mucous membranes, hearing normal, ears appear normal Cardiovascular: regular rate and rhythym, No JVD, No edema Respiratory: no respiratory distress, no rales or rhonchi, reduced air movement Gastrointestinal: No tenderness, No ascites, No guarding Skin: warm, normal color, abrasion Musculoskeletal: no joint effusions, muscular tenderness, generalized weakness Neurologic: AAOx3 Psychiatric: not anxious, not encephalopathic, thought process linear, poor insight, poor judgement ICD10 Worksheet Patient Problems: Problems Problem Status Diagnosed Confusion Acute Multiple sclerosis Acute Weakness Acute Diarrhea Acute Nausea & vomiting Acute Vomiting Acute
--- NOTE | 2016-09-21 15:43 | NEUROPROG ---
Assessment: CC: F/U for multiple sclerosis HPI: This is a 71-year-old male, whom I have previously seen in the outpatient setting for relapsing, remitting multiple sclerosis. He reports a long course of relapsing, remitting multiple sclerosis, with Copaxone. Unfortunately, he has suffered slowly worsening neurologic problems including ataxia in all extremities, particularly significant in his legs, as well as some left-sided weakness and some bowel incontinence. His leg discoordination is so severe that he has problems ambulating and requires his to help with home healthcare. He has had frequent falls. He was seen a few months ago for episode of altered mental status, possibly thought to be due from frequent tramadol use in combination with his underlying multiple sclerosis. That resolved, but he was put in acute rehab, which he did well at [facility] for a few weeks. Approximately 3 weeks ago, he was released from acute rehab and went home. His had difficulty caring from him. In the last week, she reports his gait has significantly worsened where he will not get up anymore without help. His legs are atrophied from disuse. He has frequent falls per his . This prompted her to bring him back to the hospital for care. Patient states his legs feel worse in the last week, but otherwise cannot think of any worsening neurologic problems. He was a bit confused when he first came in. That has resolved and he is back to his normal mentation. PN: 09/21/16- Pt had brain MRI (stable compared to study with no active enhancing lesions) but could not tolerate length of MRI so spinal MRI not done. He denied new complaints today. I spoke with his as well and she and I both felt that it did not appear he would be able to safely live at home at this time as his frequent falls and her inability to lift him up. PAST MEDICAL HISTORY: Relapsing, remitting multiple sclerosis, chronic systolic congestive heart failure, arthritis, hypertension, GERD, SBO repair, umbilical hernia, bilateral inguinal hernias. FAMILY HISTORY: Possible throat cancer. SOCIAL HISTORY: Former smoker. LABS: September 17, 2016: CBC with hematocrit of 30.2. CMP with a chloride of 113, BUN 26, glucose 147, ammonia less than 9. TSH is normal. UA unremarkable. IMAGING: September 17, 2016: A head CT without contrast shows stable periventricular and deep hemispheric white matter lesions that can be seen with demyelinating diseases, such as multiple sclerosis as given by history. No acute intracranial abnormalities visualized. I personally visualized this study. 09/20/16- Brain MRI w/ and w/o con: stable compared to study, stable demylinating disease, no enhancing lesions ASSESSMENT: 1. Relapsing, remitting multiple sclerosis causing significant ataxia in arms and legs, impairing gait and abilities for activities of daily living: brain MRI showed no active disease, I think the patient's current impairment is from stable long-standing multiple sclerosis and is unlikely to improve significantly in the near term 2. Altered mental status, resolved. 3. Chronic systolic congestive heart failure. RECOMMENDATIONS: - Palliative consult tomorrow for patient to consider all options - I doubt total spine MRI w/ and /wo con will retail management keyholder and I do not feel general anesthesia is worth the risk to obtain the study at this time, I will have pt f/u with me in the outpatient setting and consider an open MRI at that time to help patient complete study - Continue Copaxone, MS appears stable on brain MRI - Consider placement in [facility] facility, hopefully he can improve enough over time to be able to return home and live with his , currently it seems he is too impaired to be able to live with her safely due to frequent falls and inability to get up - F/U in 3 weeks with outpatient neurology service Neurology will sign off, nothing further to do at this time 35 min spent with patient and talking with his , majority of time spent counseling on likely prognosis from multiple sclerosis Objective: Vital Signs Temp Pulse Resp BP Pulse Ox 36.7 C 69 16 128/59 H 98 09/21/16 08:00 09/21/16 10:40 09/21/16 08:00 09/21/16 10:41 09/21/16 08:00 Microbiology 09/17/16 22:05 Urine Culture - Final Urine,Clean Catch Five Or More [place] Types Laboratory Results 09/18/16 04:25 09/18/16 04:25 09/20/16 09/21/16 09/22/16 05:59 05:59 05:59 Intake Total 350 100 300 Output Total 100 100 Balance 250 100 200 Allergies/Adverse Reactions: No Known Allergies Allergy (Unverified 03/10/13 14:27)
[2016-09-21] MEDS: Glatiramer Acetate [Copaxone] 40 MG SQ SCH (16:26)
[2016-09-21] MEDS: POTASSIUM CL 20 MEQ TAB PO SCH (16:26)
--- NOTE | 2016-09-21 16:27 | PDPCPN ---
Palliative Care Progress Note Assessment/Plan: Referring provider: Karyn Hayden Reason for consult: Complex medical decision making Symptom control HPI: Hugo Johns is a 71 yo male with PMH multiple sclerosis, a fib, GERD, diastolic CHF, and recent asp PNA admitted to the hospital with increasing falls /weakness and AMS. AMs resolved with no interventions, possibly due to medications. Neurology consulted and work up for possible MS flare or progression. Very weak and needing more assistance. Palliative care consulted for complex medical decision making. Met with Hugo this AM and again this afternoon. He states before he was dx with MS 10 years ago he was a very active outdoors person hiking, fishing, and skiing. He has slowly been declining since then but feels over the past few months his ability to be independent has decreased dramatically. He no longer feels he has any quality of life since he is not able to do anything for himself. He did not like his experience at [facility] as he was frequently had other patients coming into his room. He wants to be at home but also realizes his cannot care for him at his level. He feels very frustrated with his situation of having MS with continuing decline. We spoke of talking about his advance directives and goals with his so we can best focus on his quality and what matters most to him. Assessment: Physical: - Pain: general pain, muscle spasms - tramadol helps most per patient on 100mg PRN - already on gabapentin 900 mg BID - robaxin scheduled for spasms - on amitriptyline - constipation - at risk with tramadol, monitor Emotional/psychological: anxiety- due to not being able to lie still for MRI - ativan PRN for MRIs Advanced Care Planning: Is patient decisional?: yes Code Status: Full MD POA: would be decision maker Plan: Willing to go to SNF for short term temporary stay. unable to care for him at home. Will meet with and patient at 11 AM. Subjective: I feel ok Objective: Social History: to [place]. 2 children local and involved. Worked as personal security. Medication list reviewed ROS: General: fatigue, weakness, weight loss ENT: negative Resp: negative GI: negative : incontinent MS: general pain, muscle spasms Skin: negative Neuro: general weakness Psych: anxiety Functional assessment: PPS: 40% Functional status: dependent on ADLs, IADLs Vital Signs Temp Pulse Resp BP Pulse Ox 36.7 C 69 16 128/59 H 98 09/21/16 08:00 09/21/16 10:40 09/21/16 08:00 09/21/16 10:41 09/21/16 08:00 Microbiology 09/17/16 22:05 Urine Culture - Final Urine,Clean Catch Five Or More [place] Types Laboratory Results 09/18/16 04:25 09/18/16 04:25 09/20/16 09/21/16 09/22/16 05:59 05:59 05:59 Intake Total 350 100 300 Output Total 100 100 Balance 250 100 200 Physical Exam - Physical Exam General Appearance: alert, no apparent distress Respiratory: No respiratory distress, No accessory muscle use Skin: normal color, warm/dry Extremities: No pedal edema Neuro/Psych: alert, oriented x 3 ICD10 Worksheet Patient Problems: Problems Problem Status Diagnosed Confusion Acute Multiple sclerosis Acute Palliative care encounter Acute Weakness Acute Diarrhea Acute Nausea & vomiting Acute Vomiting Acute - ICD10 Problem Qualifiers (1) Palliative care encounter
[2016-09-21] MEDS: AMITRIPTYLINE HCL 50 MG TAB PO SCH (20:36)
[2016-09-22] MEDS: traMADol 50 MG TAB PO PRN ×5 (03:38→23:42)
[2016-09-22] MEDS: METHOCARBAMOL 750 MG TAB PO SCH ×4 (05:20→20:26)
[2016-09-22] MEDS: GABAPENTIN 300 MG CAP PO SCH ×2 (09:07→20:26)
[2016-09-22] MEDS: CARVEDILOL 3.125 MG TAB PO SCH (09:07)
[2016-09-22] MEDS: PANTOPRAZOLE SODIUM 40 MG TAB PO SCH (09:07)
[2016-09-22] MEDS: ENOXAPARIN 40 MG/0.4 ML SYR SC SCH (09:08)
[2016-09-22] MEDS: LISINOPRIL/HCTZ 20/12.5MG 1 EA TAB PO SCH (09:08)
--- NOTE | 2016-09-22 12:54 | HOSPPROG ---
Hospitalist Progress Note Assessment/Plan: 71 yo M with hx of MS that is fairly advanced as well as chf and recent hospitalization for aspiration pna admitted with acute encephalopathy. Reviewed with rn case management. # acute encephalopathy: * Resolved without any intervention * possibly secondary to cannabis use # MS: relapsing and remitting, on copaxone, * MRI brain stable without acute flare * Dr Marsh to see outpt * Has not been following up with Neurology but has his primary care provider manage his care. #. anemia * Stable # gait instability/generalized weakness: * patient quite debilitated 2/2 MS, and choice to remain minimally mobile. has issues with ADLs including eating/toileting and transferring. Is alone all night long as works nights [place]. At this time does not appear safe to dc home. * [facility] placement for rehab * patient doesn't want to go to SNF, feels his family doesn't want to deal with him and doesn't know what next steps are * palliative care consult completed # chronic diastolic heart failure: no e/o exacerbation, appears euvolemic * dc fluids # chronic medical issues including : htn, gerd, OA--continue op meds # dispo: SNF discharge when insurance authorization provided Subjective: No specific pain currently. Unhappy about discharge situation. Awaiting palliative care consult. Objective: Vital Signs Temp Pulse Resp BP Pulse Ox 36.5 C 60 18 147/56 H 100 09/22/16 09:13 09/22/16 09:13 09/22/16 09:13 09/22/16 09:13 09/22/16 09:13 Laboratory Results 09/18/16 04:25 09/18/16 04:25 09/21/16 09/22/16 09/23/16 05:59 05:59 05:59 Intake Total 100 300 Output Total 375 Balance 100 -75 - Physical Exam Constitutional: not in pain, chronically ill appearing, cachectic Eyes: PERRL, anicteric sclera, EOMI Ears, Nose, Mouth, Throat: moist mucous membranes, hearing normal, ears appear normal Cardiovascular: regular rate and rhythym, No JVD, No edema Respiratory: no respiratory distress, no rales or rhonchi, reduced air movement Gastrointestinal: No tenderness, No ascites, No guarding Skin: warm, normal color, abrasion, No erythema Musculoskeletal: normal joint ROM, no joint effusions, generalized weakness Neurologic: AAOx3 Psychiatric: not anxious, not encephalopathic, poor insight, poor judgement ICD10 Worksheet Patient Problems: Problems Problem Status Diagnosed Confusion Acute Multiple sclerosis Acute Palliative care encounter Acute Weakness Acute Diarrhea Acute Nausea & vomiting Acute Vomiting Acute
--- NOTE | 2016-09-22 17:07 | PDPCPN ---
Palliative Care Progress Note Assessment/Plan: HPI: Hugo Johns is a 71 yo male with PMH multiple sclerosis, a fib, GERD, diastolic CHF, and recent asp PNA admitted to the hospital with increasing falls /weakness and AMS. AMs resolved with no interventions, possibly due to medications. Neurology consulted and work up for possible MS flare or progression. Very weak and needing more assistance. Palliative care consulted for complex medical decision making. Met with Ashly and son Tariq at the bedside today with Hugo. He restated his feelings of having no quality of life due to being dependent. He relayed his concerns about a rehab at discharge but is willing to work with PT to get stronger. His wish is really to be at home with his family. His family expressed their concerns with his safety and not being able to manage him at home in his current weak state. Did discuss unknown how his progression will be and there might be continued weakness. Nell SR discussed possible manager long term care care options including home care. Hugo feels there is not point in life prolonging measures as he sees himself in this cycle of hospitalization, rehab, sickness, repeat. We did discuss code status and Hugo feels he would not want CPR but his family believes he is making a rash decision and believes Hugo should continue to think and discuss this. Assessment: Physical: - Pain: general pain, muscle spasms - tramadol helps most per patient on 100mg PRN - already on gabapentin 900 mg BID - robaxin scheduled for spasms - on amitriptyline - constipation - at risk with tramadol, monitor Emotional/psychological: anxiety- due to not being able to lie still for MRI - ativan PRN for MRIs Advanced Care Planning: Is patient decisional?: yes Code Status: Full MD POA: would be decision maker Plan: CM working on SNF placement for short term rehab. Goal is to get back home again. Subjective: I'm feeling the same Objective: Vital Signs Temp Pulse Resp BP Pulse Ox 36.7 C 75 18 138/60 H 93 09/22/16 16:00 09/22/16 16:00 09/22/16 16:00 09/22/16 16:00 09/22/16 16:00 Laboratory Results 09/18/16 04:25 09/18/16 04:25 09/21/16 09/22/16 09/23/16 05:59 05:59 05:59 Intake Total 100 300 200 Output Total 375 100 Balance 100 -75 100 Physical Exam - Physical Exam General Appearance: alert, no apparent distress Respiratory: No respiratory distress, No accessory muscle use Skin: normal color, warm/dry Extremities: No pedal edema Neuro/Psych: alert, oriented x 3 ICD10 Worksheet Patient Problems: Problems Problem Status Diagnosed Confusion Acute Multiple sclerosis Acute Palliative care encounter Acute Weakness Acute Diarrhea Acute Nausea & vomiting Acute Vomiting Acute - ICD10 Problem Qualifiers (1) Palliative care encounter
[2016-09-22] MEDS: AMITRIPTYLINE HCL 50 MG TAB PO SCH (20:26)
[2016-09-23] MEDS: METHOCARBAMOL 750 MG TAB PO SCH ×4 (05:13→20:01)
[2016-09-23] MEDS: traMADol 50 MG TAB PO PRN ×3 (08:33→20:01)
[2016-09-23] MEDS: GABAPENTIN 300 MG CAP PO SCH ×2 (08:36→20:01)
[2016-09-23] MEDS: LISINOPRIL/HCTZ 20/12.5MG 1 EA TAB PO SCH (08:38)
[2016-09-23] MEDS: PANTOPRAZOLE SODIUM 40 MG TAB PO SCH (08:38)
[2016-09-23] MEDS: CARVEDILOL 3.125 MG TAB PO SCH (08:39)
[2016-09-23] MEDS: ENOXAPARIN 40 MG/0.4 ML SYR SC SCH (08:46)
--- NOTE | 2016-09-23 12:34 | HOSPPROG ---
Hospitalist Progress Note Assessment/Plan: 71 yo M with hx of MS that is fairly advanced as well as chf and recent hospitalization for aspiration pna admitted with acute encephalopathy. Reviewed with case management social worker. # acute encephalopathy: * Resolved without any intervention * possibly secondary to cannabis use # MS: relapsing and remitting, on copaxone, * MRI brain stable without acute flare * Dr Marsh to see outpt * Has not been following up with Neurology but has his primary care provider manage his care. #. anemia * Stable # gait instability/generalized weakness: * patient quite debilitated 2/2 MS, and choice to remain minimally mobile. has issues with ADLs including eating/toileting and transferring. Is alone all night long as works nights and [place]. At this time does not appear safe to dc home. * Sniff placement for rehab * patient doesn't want to go to SNF, feels his family doesn't want to deal with him and doesn't know what next steps are * palliative care consult completed # chronic diastolic heart failure: no e/o exacerbation, appears euvolemic * dc fluids # chronic medical issues including : htn, gerd, OA--continue op meds # dispo: SNF discharge when insurance authorization provided Subjective: Feeling better today. Anxious about leaving the hospital. Eating breakfast. Objective: Vital Signs Temp Pulse Resp BP Pulse Ox 36.6 C 69 17 135/60 H 94 09/23/16 08:00 09/23/16 08:39 09/23/16 08:00 09/23/16 08:39 09/23/16 08:00 Laboratory Results 09/18/16 04:25 09/18/16 04:25 09/22/16 09/23/16 09/24/16 05:59 05:59 05:59 Intake Total 300 200 Output Total 375 775 Balance -75 -575 - Physical Exam Constitutional: chronically ill appearing, cachectic Eyes: PERRL, anicteric sclera Ears, Nose, Mouth, Throat: moist mucous membranes, hearing normal Cardiovascular: No JVD, No edema Respiratory: no respiratory distress, reduced air movement Gastrointestinal: No tenderness, No ascites Skin: warm, normal color, No erythema Musculoskeletal: no joint effusions, generalized weakness Neurologic: AAOx3 Psychiatric: not anxious, not encephalopathic ICD10 Worksheet Patient Problems: Problems Problem Status Diagnosed Confusion Acute Multiple sclerosis Acute Palliative care encounter Acute Weakness Acute Diarrhea Acute Nausea & vomiting Acute Vomiting Acute
[2016-09-23] MEDS: POTASSIUM CL 20 MEQ TAB PO SCH (15:01)
[2016-09-23] MEDS: Glatiramer Acetate [Copaxone] 40 MG SQ SCH (18:29)
[2016-09-23] MEDS: AMITRIPTYLINE HCL 50 MG TAB PO SCH (20:01)
[2016-09-24] MEDS: METHOCARBAMOL 750 MG TAB PO SCH ×4 (05:58→20:38)
--- NOTE | 2016-09-24 08:23 | HOSPPROG ---
Hospitalist Progress Note Assessment/Plan: 71 yo M with hx of MS, DCHF, GERD, OA, and recent hospitalization for aspiration pna admitted with acute encephalopathy. # acute encephalopathy: * Resolved without any intervention * possibly secondary to cannabis use # MS: relapsing and remitting, on copaxone, * MRI brain stable without acute flare * Dr Marsh to see outpt * Has not been following up with Neurology but has his primary care provider manage his care. #. anemia * Stable # gait instability/generalized weakness: * patient quite debilitated 2/2 MS, and choice to remain minimally mobile. has issues with ADLs including eating/toileting and transferring. Is alone all night long as works nights and [place]. At this time does not appear safe to dc home. * SNF placement for rehab * patient doesn't want to go to SNF, feels his family doesn't want to deal with him and doesn't know what next steps are * palliative care consult completed # chronic diastolic heart failure: no e/o exacerbation, appears euvolemic * dc fluids # chronic medical issues including : htn, gerd, OA--continue op meds # dispo: SNF discharge when insurance authorization provided Subjective: Reports some back pain. No further encephalopathy. Objective: Vital Signs Temp Pulse Resp BP Pulse Ox 97.7 F 72 16 130/50 H 96 09/24/16 07:46 09/24/16 07:46 09/24/16 07:46 09/24/16 07:46 09/24/16 07:46 Laboratory Results 09/18/16 04:25 09/18/16 04:25 09/23/16 09/24/16 09/25/16 05:59 05:59 05:59 Intake Total 200 200 Output Total 640 1050 Balance -575 -850 - Physical Exam Constitutional: no apparent distress, appears nourished Eyes: PERRL Ears, Nose, Mouth, Throat: moist mucous membranes Cardiovascular: regular rate and rhythym Respiratory: no respiratory distress, no rales or rhonchi Skin: warm, other (multiple scabs over LE) Neurologic: AAOx3 ICD10 Worksheet Patient Problems: Problems Problem Status Diagnosed Confusion Acute Multiple sclerosis Acute Palliative care encounter Acute Weakness Acute Diarrhea Acute Nausea & vomiting Acute Vomiting Acute
[2016-09-24] MEDS: CARVEDILOL 3.125 MG TAB PO SCH (10:00)
[2016-09-24] MEDS: GABAPENTIN 300 MG CAP PO SCH ×2 (10:00→20:37)
[2016-09-24] MEDS: LISINOPRIL/HCTZ 20/12.5MG 1 EA TAB PO SCH (10:01)
[2016-09-24] MEDS: ENOXAPARIN 40 MG/0.4 ML SYR SC SCH (10:01)
[2016-09-24] MEDS: PANTOPRAZOLE SODIUM 40 MG TAB PO SCH (10:01)
[2016-09-24] MEDS ORDERED: OXYCODONE/APAP 5/325 TAB PO PRN (13:10)
[2016-09-24] MEDS: traMADol 50 MG TAB PO PRN ×2 (16:18→20:50)
[2016-09-24] MEDS: AMITRIPTYLINE HCL 50 MG TAB PO SCH (20:39)
[2016-09-25] MEDS: METHOCARBAMOL 750 MG TAB PO SCH ×4 (05:19→21:21)
[2016-09-25] MEDS: traMADol 50 MG TAB PO PRN ×3 (08:35→21:20)
[2016-09-25] MEDS: CARVEDILOL 3.125 MG TAB PO SCH (08:37)
[2016-09-25] MEDS: ENOXAPARIN 40 MG/0.4 ML SYR SC SCH (08:37)
[2016-09-25] MEDS: LISINOPRIL/HCTZ 20/12.5MG 1 EA TAB PO SCH (08:37)
[2016-09-25] MEDS: PANTOPRAZOLE SODIUM 40 MG TAB PO SCH (08:37)
[2016-09-25] MEDS: GABAPENTIN 300 MG CAP PO SCH ×2 (08:37→21:22)
--- NOTE | 2016-09-25 12:06 | WOCRNPDOC ---
BLAS Advanced Assessment Note - Skin Integrity Problem, Advanced Assess Sacrum Dressing Type: Allevyn Life Dressing Description: Clean/Dry, Intact Exudate Amount: None Exudate Characteristic(s): None Francie Wound Tissue: Blanching, Intact Francie Wound Swelling: None Wound Bed Color: [place] Wound Bed Constitution: Smooth Tissue Site Odor: None Site Measurement - Head-to-Toe Length X Width X Depth (cm): 1.6cmx3.3cmx0.1cm Skin Integrity Problem Comment: Shearing injury across patient's sacrum r/t commode. Location of injury is suspicious for a pressure-related injury, but present appearance does not indicate ischemic injury. Presently, this wound is superficial w/ a friable margin and a pink, epithelializing wound bed, no exudate noted. Recommened Allevyn Life dressing for protection and to facilitate healing of tissues. Report given to electrician yard Chris. Left Lower Leg Abrasion Dressing Type: Open to Air Exudate Amount: None Exudate Characteristic(s): None Francie Wound Tissue: Intact Francie Wound Swelling: None Wound Bed Color: Brown Wound Bed Constitution: Scab Wound Edges: Epithelizing Site Measurement - Head-to-Toe Length X Width X Depth (cm): [id number] scab Skin Integrity Problem Comment: Long, linear scab noted along the length of patient's [place]. He reports this injury occurred at home when he "slid under the desk." No swelling or erythema observed. Protective dressing and hydrogel ordered.
[2016-09-25] MEDS: POTASSIUM CL 20 MEQ TAB PO SCH (16:03)
[2016-09-25] MEDS: AMITRIPTYLINE HCL 50 MG TAB PO SCH (21:22)
[2016-09-26] MEDS: traMADol 50 MG TAB PO PRN ×4 (03:14→23:56)
[2016-09-26] MEDS: METHOCARBAMOL 750 MG TAB PO SCH ×5 (06:04→20:53)
[2016-09-26] MEDS: CARVEDILOL 3.125 MG TAB PO SCH (08:24)
[2016-09-26] MEDS: LISINOPRIL/HCTZ 20/12.5MG 1 EA TAB PO SCH (08:24)
[2016-09-26] MEDS: PANTOPRAZOLE SODIUM 40 MG TAB PO SCH (08:25)
[2016-09-26] MEDS: GABAPENTIN 300 MG CAP PO SCH ×2 (08:27→20:53)
[2016-09-26] MEDS: ENOXAPARIN 40 MG/0.4 ML SYR SC SCH (08:32)
--- NOTE | 2016-09-26 11:37 | HOSPPROG ---
Hospitalist Progress Note Assessment/Plan: 71 yo M with hx of MS that is fairly advanced as well as chf and recent hospitalization for aspiration pna admitted with acute encephalopathy. # acute encephalopathy: * Resolved without any intervention * possibly secondary to cannabis use # MS: relapsing and remitting, on copaxone, * MRI brain stable without acute flare * Dr Marsh to see outpt * Has not been following up with Neurology but has his primary care provider manage his care. #. anemia * Stable # gait instability/generalized weakness: * patient quite debilitated 2/2 MS, and choice to remain minimally mobile. has issues with ADLs including eating/toileting and transferring. Is alone all night long as works nights and [place]. At this time does not appear safe to dc home. * SNF placement for rehab * patient doesn't want to go to SNF, feels his family doesn't want to deal with him and doesn't know what next steps are * palliative care consult completed/appreciate their involvement # chronic diastolic heart failure: no e/o exacerbation, appears euvolemic * dc fluids # chronic medical issues including : htn, gerd, OA--continue op meds # dispo: awaiting placement to [facility]/ hopefully can go later today Subjective: Hugo has no c/o pain/ feeling well. Objective: Vital Signs Temp Pulse Resp BP Pulse Ox 36.4 C 77 18 133/61 H 95 09/26/16 07:49 09/26/16 07:49 09/26/16 07:49 09/26/16 07:49 09/26/16 07:49 Laboratory Results 09/18/16 04:25 09/18/16 04:25 09/25/16 09/26/16 09/27/16 05:59 05:59 05:59 Intake Total 1220 2700 Output Total 700 650 125 Balance 520 2050 -125 - Physical Exam Constitutional: chronically ill appearing, cachectic Eyes: PERRL Ears, Nose, Mouth, Throat: hearing normal Cardiovascular: regular rate and rhythym Respiratory: no respiratory distress Gastrointestinal: normoactive bowel sounds Skin: warm, No normal color (pale) Musculoskeletal: no muscle tenderness Neurologic: AAOx3 Psychiatric: depressed ICD10 Worksheet Patient Problems: Problems Problem Status Diagnosed Confusion Acute Multiple sclerosis Acute Palliative care encounter Acute Weakness Acute Diarrhea Acute Nausea & vomiting Acute Vomiting Acute
[2016-09-26] MEDS: Glatiramer Acetate [Copaxone] 40 MG SQ SCH (16:26)
[2016-09-26] MEDS: AMITRIPTYLINE HCL 50 MG TAB PO SCH (20:53)
[2016-09-27] MEDS: METHOCARBAMOL 750 MG TAB PO SCH ×4 (06:23→21:19)
[2016-09-27] MEDS: traMADol 50 MG TAB PO PRN ×2 (07:05→17:59)
[2016-09-27] MEDS: PANTOPRAZOLE SODIUM 40 MG TAB PO SCH (08:21)
[2016-09-27] MEDS: ENOXAPARIN 40 MG/0.4 ML SYR SC SCH (08:21)
[2016-09-27] MEDS: GABAPENTIN 300 MG CAP PO SCH ×2 (08:21→21:19)
[2016-09-27] MEDS: CARVEDILOL 3.125 MG TAB PO SCH (08:22)
[2016-09-27] MEDS: LISINOPRIL/HCTZ 20/12.5MG 1 EA TAB PO SCH (08:24)
[2016-09-27] MEDS: POTASSIUM CL 20 MEQ TAB PO SCH (15:30)
--- NOTE | 2016-09-27 15:31 | HOSPPROG ---
Hospitalist Progress Note Assessment/Plan: 71 yo M with hx of MS that is fairly advanced as well as chf and recent hospitalization for aspiration pna admitted with acute encephalopathy. # acute encephalopathy: * Resolved without any intervention * possibly secondary to cannabis use # MS: on copaxone, * MRI brain stable without acute flare * Dr Marsh to see outpt * Has not been following up with Neurology but has his primary care provider manage his care. #. anemia * Stable # gait instability/generalized weakness: * patient quite debilitated 2/2 MS, and choice to remain minimally mobile. * SNF placement for rehab * palliative care consult completed/appreciate their involvement # chronic diastolic heart failure: no e/o exacerbation, appears euvolemic * dc fluids # chronic medical issues including : htn, gerd, OA--continue op meds # dispo: awaiting placement to [facility] Subjective: Hugo is very happy that he was able to ambulate today w PT. Objective: Vital Signs Temp Pulse Resp BP Pulse Ox 36.4 C 94 18 134/65 H 100 09/27/16 07:24 09/27/16 08:22 09/27/16 07:24 09/27/16 08:24 09/27/16 07:24 Laboratory Results 09/18/16 04:25 09/18/16 04:25 09/26/16 09/27/16 09/28/16 05:59 05:59 05:59 Intake Total 2700 600 240 Output Total 650 600 100 Balance 2050 0 140 - Physical Exam Constitutional: chronically ill appearing, other (thin) Eyes: PERRL Ears, Nose, Mouth, Throat: hearing normal Cardiovascular: regular rate and rhythym Respiratory: no respiratory distress Gastrointestinal: normoactive bowel sounds Skin: warm, No normal color (pale) Musculoskeletal: generalized weakness Neurologic: AAOx3 Psychiatric: interacting appropriately, not anxious, not encephalopathic ICD10 Worksheet Patient Problems: Problems Problem Status Diagnosed Confusion Acute Multiple sclerosis Acute Palliative care encounter Acute Weakness Acute Diarrhea Acute Nausea & vomiting Acute Vomiting Acute
[2016-09-27] MEDS: AMITRIPTYLINE HCL 50 MG TAB PO SCH (21:19)
[2016-09-28] MEDS: traMADol 50 MG TAB PO PRN ×4 (01:00→21:50)
[2016-09-28] MEDS: METHOCARBAMOL 750 MG TAB PO SCH ×4 (06:52→21:50)
[2016-09-28] MEDS: GABAPENTIN 300 MG CAP PO SCH ×2 (09:10→21:50)
[2016-09-28] MEDS: LISINOPRIL/HCTZ 20/12.5MG 1 EA TAB PO SCH (09:10)
[2016-09-28] MEDS: CARVEDILOL 3.125 MG TAB PO SCH (09:11)
[2016-09-28] MEDS: PANTOPRAZOLE SODIUM 40 MG TAB PO SCH (09:12)
[2016-09-28] MEDS: ENOXAPARIN 40 MG/0.4 ML SYR SC SCH (09:13)
--- NOTE | 2016-09-28 14:56 | HOSPPROG ---
Hospitalist Progress Note Assessment/Plan: 71 yo M with hx of MS that is fairly advanced as well as chf and recent hospitalization for aspiration pna admitted with acute encephalopathy. # acute encephalopathy: * Resolved without any intervention * possibly secondary to cannabis use # MS: on copaxone, * MRI brain stable without acute flare * Dr Marsh to see outpt * Has not been following up with Neurology but has his primary care provider manage his care. #. anemia * Stable # gait instability/generalized weakness: * patient quite debilitated 2/2 MS, and choice to remain minimally mobile. * SNF placement for rehab * palliative care consult completed/appreciate their involvement # chronic diastolic heart failure: no e/o exacerbation, appears euvolemic * dc fluids # chronic medical issues including : htn, gerd, OA--continue op meds # dispo: awaiting placement to [facility] Subjective: Feeling stronger. Still not eager to leave the hospital. Objective: Vital Signs Temp Pulse Resp BP Pulse Ox 36.8 C 60 14 122/55 H 93 09/28/16 08:00 09/28/16 08:00 09/28/16 08:00 09/28/16 08:00 09/28/16 00:00 Laboratory Results 09/18/16 04:25 09/18/16 04:25 09/27/16 09/28/16 09/29/16 05:59 05:59 05:59 Intake Total 600 1080 370 Output Total 600 700 250 Balance 0 380 120 - Physical Exam Constitutional: not in pain, chronically ill appearing Eyes: PERRL, anicteric sclera Ears, Nose, Mouth, Throat: moist mucous membranes, hearing normal Cardiovascular: No JVD, No tachycardia Respiratory: no respiratory distress, reduced air movement Gastrointestinal: No tenderness, No ascites Skin: warm, normal color Musculoskeletal: abnormal gait, generalized weakness Neurologic: AAOx3 Psychiatric: not anxious, not encephalopathic, poor judgement ICD10 Worksheet Patient Problems: Problems Problem Status Diagnosed Confusion Acute Multiple sclerosis Acute Palliative care encounter Acute Weakness Acute Diarrhea Acute Nausea & vomiting Acute Vomiting Acute
[2016-09-28] MEDS: Glatiramer Acetate [Copaxone] 40 MG SQ SCH (16:48)
[2016-09-28] MEDS: AMITRIPTYLINE HCL 50 MG TAB PO SCH (21:50)
[2016-09-29] MEDS: METHOCARBAMOL 750 MG TAB PO SCH ×2 (06:32→11:16)
[2016-09-29] MEDS: traMADol 50 MG TAB PO PRN ×2 (06:32→11:19)
[2016-09-29 08:07] VITALS: BP 124/56; PULSE 73; RESP 18; TEMP 98.2; O2SAT 93
[2016-09-29] MEDS: ENOXAPARIN 40 MG/0.4 ML SYR SC SCH (08:26)
[2016-09-29] MEDS: LISINOPRIL/HCTZ 20/12.5MG 1 EA TAB PO SCH (08:26)
[2016-09-29] MEDS: PANTOPRAZOLE SODIUM 40 MG TAB PO SCH (08:26)
[2016-09-29] MEDS: GABAPENTIN 300 MG CAP PO SCH (08:26)
[2016-09-29] MEDS: CARVEDILOL 3.125 MG TAB PO SCH (08:26)
--- NOTE | 2016-09-29 10:12 | PDIAF ---
- Diagnosis Diagnosis: Weakness Code Status: Full Code - Medication Management Discharge Medications: Medications to Continue on Transfer Carvedilol [Coreg (*)] 6.25 mg PO DAILY 03/10/13 [Last Taken 09/16/16] Glatiramer Acetate [Copaxone] 40 mg SQ [id number] 03/10/13 [Last Taken 09/14/16] Lisinopril/Hctz 20/12.5MG [Zestoretic/Prinzide 20/12.5MG (*)] 1 ea PO DAILY [Last Taken 09/15/16] Methocarbamol [Robaxin 750 mg (*)] 1,500 mg PO QID 03/10/13 [Last Taken 01:30] Omeprazole [Prilosec 40 mg] 40 mg PO DAILY 03/10/13 [Last Taken 09/10/16] Potassium Cl [Klor-Con 20 meq (*)] 20 meq PO Q48H 03/10/13 [Last Taken 09/15/16] Herbals/Supplements -Info Only 1 ea PO AD 02/19/15 [Last Taken Unknown] traMADol [Ultram 50 mg (*)] 100 mg PO Q4H PRN 02/19/15 [Last Taken 09/17/16 01: 30 50MG] Amitriptyline HCl [Elavil 50 mg (*)] 50 mg PO HS 07/15/16 [Last Taken 09/15/16] Gabapentin [Neurontin] 900 mg PO BID #0 tablet 07/26/16 [Last Taken 09/17/16 01: 30] Discharge Medications: Refer to the Discharge Home Medication list for PRN reason. PICC Care - Routine: N/A - Orders Services needed: Registered Nurse, Master Wood Lathe Operator, Physical Therapy, Occupational Therapy - Follow Up Care Current Providers and Referrals: Hugo Becker MD [Primary Care Provider] - As per Instructions
--- NOTE | 2016-09-29 15:16 | GDS ---
[f rep st] DISCHARGE SUMMARY DISCHARGE DIAGNOSES: 1. Acute encephalopathy. 2. Generalized weakness. 3. Failure to thrive. 4. History of multiple sclerosis. 5. Anemia. 6. Gait instability. 7. Chronic diastolic heart failure. CONSULTATIONS: Neurology. STUDIES AND PROCEDURES DONE: 1. CT of the head. 2. MRI of the brain. PHYSICAL EXAM: GENERAL: The patient is alert. VITAL SIGNS: Afebrile 36.8, pulse is 73, respirator y rate is 18, blood pressure is 124/56. He is saturating 93% on room air. I have seen and evaluated the patient on the day of discharge. HOSPITAL COURSE: The patient is a 71-year-old male, who presented to the emergency room with complai nts of altered mental status and weakness. He was evaluated and diagnosed with: 1. Acute encephalopathy. This is likely related to his excessive cannabis use and resolved during t his hospitalization. 2. History of MS. He was evaluated by Neurology during this hospital course. An MRI of the brain w as performed with no signs of extension or acute exacerbation of his MS. 3. Generalized weakness with failure to thrive. The patient will be discharged to a assisted facility for further rehabilitation. He is unsafe to be discharged home at this time. Palliative C are consult has been done during this hospital course. Please refer to Palliative notes for further details. 4. Anemia. This is chronic and is stable. DISPOSITION: The patient will be discharged to a assisted facility for further rehabilitation and management. There are no pending studies. DISCHARGE MEDICATIONS: Please refer to EMR form. I have not adjusted the patient's previously presc ribed home medications to the best of my knowledge. FOLLOWUP: Will be with his primary care physician, Dr. Hugo Becker, as well as Dr. Marsh of [facility], [place]. I spent greater than 35 minutes in the care, coordination, and management of the patient's dispositio n. /[id number]/MODL
== END 2016-09-29 11:59 | DRG 71 ==
LOC: F3N 11:41 → UNDODISIN 09-19 15:01 → F3E 09-19 15:01
PROVIDERS: ADMIT Internal Medicine; ATTEND Internal Medicine
DX: G93.40 Encephalopathy, unspecified (principal); I50.32 Chronic diastolic (congestive) heart failure; G35 Multiple sclerosis; R53.1 Weakness; R62.7 Adult failure to thrive; R26.9 Unspecified abnormalities of gait and mobility; I11.0 Hypertensive heart disease with heart failure; K21.9 Gastro-esophageal reflux disease without esophagitis
CPT/HCPCS: 80305; 97110-GP; 97162-GP; 97166-GO; 97530-GO; 97530-GP; 97535-GO; A9585; G0480; G8978-GP-CL; G8979-GP-CK; G8987-GO-CK; G8987-GO-CL; G8988-GO-CI; J1650